=== PATIENT | female | born 1970 | race Caucasian/White ===

== ENCOUNTER 2017-11-10 01:35 | Inpatient (IN) | payer BC ==
[2017-11-10] VITALS (7 sets, daily range): BP systolic 94–131; BP diastolic 41–74; Ht 170.2 cm; Wt 86.2 kg
[~2017-11-10] VITALS: Ht 170.2 cm; Wt 86.2 kg
[2017-11-10 02:38] LABS: CARBON DIOXIDE 26.8 mmol/L (21-32); CHLORIDE SERUM 100 mmol/L (98-107); CREATININE SERUM 0.9 mg/dL (0.6-1.0); GFR1 > 60 mL/min; GLUCOSE SERUM 119 mg/dL (74-106); SODIUM SERUM 136 mmol/L (136-145)
[2017-11-10 02:49] LABS: POTASSIUM SERUM 2.8 mmol/L (3.5-5.1)
[2017-11-10 02:51] LABS: BASOPHIL % 0.3 % (0-2); PLATELET COUNT 242 x10^3mcL (130-400); RED CELL DISTRIBUTION WIDTH 13.1 % (11.5-14.5)
[2017-11-10 02:54] LABS: FREE T4 1.13 ng/dL (0.76-1.46)
[2017-11-10] MEDS ORDERED: HCTZ/TRIAMTEREN1 CA1 PO (04:05)
[2017-11-10] MEDS ORDERED: LEVOTHYROXIN0.125 M2 PO (04:06)
[2017-11-10] MEDS ORDERED: NOR5 PO (04:07)
[2017-11-10 04:35] LABS: CHOLESTEROL/HDL RATIO 3.2; MAGNESIUM 1.9 mg/dL (1.8-2.4); PHOSPHOROUS 1.5 mg/dL (2.5-4.9)
[2017-11-10 04:54] LABS: microscopic required? YES; urine erythrocyte 3+ (NEGATIVE)
[2017-11-10 05:02] LABS: AMPHETAMINE QUAL UR NONE DETECTED (NEG <=1000)
[2017-11-10 11:50] LABS: CALCIUM 8.7 mg/dL (8.5-10.1); CARBON DIOXIDE 26.1 mmol/L (21-32); CHLORIDE SERUM 104 mmol/L (98-107); CREATININE SERUM 0.7 mg/dL (0.6-1.0); GFR1 > 60 mL/min; GLUCOSE SERUM 98 mg/dL (74-106); POTASSIUM SERUM 3.9 mmol/L (3.5-5.1); SODIUM SERUM 139 mmol/L (136-145)
[2017-11-11 05:21] VITALS: BP 103/55
[2017-11-11 07:25] LABS: CALCIUM 8.2 mg/dL (8.5-10.1); CARBON DIOXIDE 29.6 mmol/L (21-32); CHLORIDE SERUM 106 mmol/L (98-107); CREATININE SERUM 0.6 mg/dL (0.6-1.0); GFR1 > 60 mL/min; GLUCOSE SERUM 93 mg/dL (74-106); MAGNESIUM 2.2 mg/dL (1.8-2.4); PHOSPHOROUS 2.8 mg/dL (2.5-4.9); POTASSIUM SERUM 3.6 mmol/L (3.5-5.1); SODIUM SERUM 140 mmol/L (136-145)
[2017-11-11 07:30] LABS: BASOPHIL % 0.4 % (0-2); PLATELET COUNT 223 x10^3mcL (130-400)
[2017-11-11 07:45] VITALS: BP 112/65
[2017-11-11 13:49] VITALS: BP 116/55
[2017-11-11 16:35] VITALS: BP 93/53
[2017-11-11 19:50] VITALS: BP 110/55
[2017-11-12 06:34] VITALS: BP 102/57
[2017-11-12 07:22] LABS: ALKALINE PHOSPHATASE 51 U/L (46-116); ALT/SGPT 22 U/L (14-59); AST/SGOT 15 U/L (15-37); BILIRUBIN TOTAL 0.2 mg/dL (0.20-1.00); CHLORIDE SERUM 108 mmol/L (98-107); CREATININE SERUM 0.7 mg/dL (0.6-1.0); GFR1 > 60 mL/min; GLUCOSE SERUM 79 mg/dL (74-106); MAGNESIUM 2.2 mg/dL (1.8-2.4); POTASSIUM SERUM 4.2 mmol/L (3.5-5.1); SODIUM SERUM 143 mmol/L (136-145); TOTAL PROTEIN, SERUM 6.6 g/dL (6.4-8.2)
[2017-11-12 07:27] LABS: ALBUMIN 2.9 g/dL (3.4-5.0)
[2017-11-12 08:07] LABS: BASOPHIL % 0.8 % (0-2); PLATELET COUNT 207 x10^3mcL (130-400); RED CELL DISTRIBUTION WIDTH 14.1 % (11.5-14.5)
[2017-11-12 10:10] VITALS: BP 124/79
[2017-11-12 10:23] VITALS: BP 124/79
[2017-11-12] MEDS ORDERED: LIPI10 PO (10:37)
[2017-11-12] MEDS ORDERED: MECLIZINE HYDRO25 M1 PO (10:38)
[2017-11-12] MEDS ORDERED: ZES5 PO (10:38)
[2017-11-12] MEDS ORDERED: LEADER OMEPRAZO20 M1 PO (10:58)
[2017-11-12] MEDS ORDERED: CIPRO500 MG PO (11:05)
[2017-11-12] MEDS ORDERED: LAC PO (11:05)
== END 2017-11-12 11:50 | disposition home or self-care (01) | DRG 391 ==
LOC: ED 01:35 → DU 03:53
PROVIDERS: Emergency Medicine; Family Medicine; Student in an Organized Health Care Education/Training Program
DX: K21.9 Gastro-esophageal reflux disease without esophagitis (principal); N17.0 Acute kidney failure with tubular necrosis; N39.0 Urinary tract infection, site not specified; E44.0 Moderate protein-calorie malnutrition; I10 Essential (primary) hypertension; E87.6 Hypokalemia; R20.2 Paresthesia of skin; E03.9 Hypothyroidism, unspecified; E83.39 Other disorders of phosphorus metabolism; E78.5 Hyperlipidemia, unspecified; R73.03 Prediabetes; E66.3 Overweight; Z68.29 Body mass index [BMI] 29.0-29.9, adult
CPT/HCPCS: 83880; 84439; 85378; J0696; J3480; J3490; J7030; J8597; Q0092